=== PATIENT | female | born 1965 | race Caucasian/White ===

== ENCOUNTER 2017-08-06 10:37 | Emergency (ER) | payer OTHER ==
--- NOTE | 2017-08-06 11:30 | RAD ---
TWO VIEWS CHEST: History: Chest pain. Comparison: 01-10-14 FINDINGS: PA and lateral chest demonstrate the lungs to be well aerated. No evidence of active intrathoracic di sease is seen. No evidence of effusions, pneumonia, or pneumothorax is seen. IMPRESSION: Normal two views chest. POS: [facility]
[2017-08-06] MEDS ORDERED: Diazepam 5 MG TAB ONE (11:43)
[2017-08-06] MEDS ORDERED: Promethazine HCl 25 MG/ML VIAL ONE (11:44)
[2017-08-06] MEDS ORDERED: Dexamethasone 10 MG/ML VIAL ONE (11:44)
== END 2017-08-06 13:28 | disposition home or self-care (01) ==
LOC: SCSER 10:37
DX: M94.0 Chondrocostal junction syndrome [Tietze] (principal); F41.9 Anxiety disorder, unspecified; I10 Essential (primary) hypertension; F32.9 Major depressive disorder, single episode, unspecified; F17.210 Nicotine dependence, cigarettes, uncomplicated; Z79.899 Other long term (current) drug therapy
CPT/HCPCS: 71020; 96372; J1100; J1170; J2550

== ENCOUNTER 2025-07-26 19:21 | Inpatient (IN) | payer BC ==
[~2025-07-26 19:21] MED LIST: Iopamidol-370 76% 500 ML MDV (1 ML CHARGE) ONE
[2025-07-26] MEDS ORDERED: Ondansetron PF 4 MG/2 ML Vial ONE (22:29)
[2025-07-27] MEDS ORDERED: Dextrose 50% Abboject 50 ML SYRINGE SLOW IVP PRN (00:12)
[2025-07-27] MEDS ORDERED: Glucagon 1 MG/ML KIT IM PRN (00:12)
[2025-07-27 02:19] VITALS: BMI 39.9
[2025-07-27] MEDS ORDERED: ALPRAZolam 0.25 MG TAB ONE (02:36)
[2025-07-27] MEDS ORDERED: cefTRIAXone (ROCEPHIN) 1 GM VIAL ONE (02:37)
[2025-07-27] MEDS: ALPRAZolam 0.5 MG TAB PO PRN (03:15)
[2025-07-27] MEDS: cefTRIAXone\\ROCEPHIN 1 GM in Sodium Chloride 0.9% 100 ML IVPB SCH (03:15)
[2025-07-27 07:01] LABS: #Basophils 0.05 10x3/uL (0.0-0.2); #Eosinophils 0.20 10x3/uL (0.0-0.7); #Monocytes 0.61 10x3/uL (0.11-0.59); #Neutrophils 3.54 10x3/uL (1.40-6.50); %Basophils 0.7 % (0.0-1.0); %Eosinophils 2.9 % (0.0-10.0); %Lymphocytes 36.4 % (21.0-51.0); %Monocytes 8.8 % (0.0-10.0); %Neutrophils 51.1 % (42.0-75.0); Hematocrit 32.0 % (36.0-47.0); Hemoglobin 9.9 g/dL (12.0-16.0); Mean Corpuscular Hemoglobin 29.6 pg (27.0-31.0); Mean Corpuscular Volume 95.5 fL (78.0-98.0); Platelet Count 259 10x3/uL (130-400); Red Blood Cell (RBC) Count 3.35 mill/uL (4.20-5.40); White Blood Cell (WBC) Count 6.93 10x3/uL (4.8-10.8)
[2025-07-27 07:25] LABS: Anion Gap 7 mmol/L (10-20); BUN (Urea Nitrogen) 14 mg/dL (9.8-20.1); Calc. Creatinine Clearance 75 mL/min (70-130); Calcium 8.8 mg/dL (7.8-10.44); Carbon Dioxide 18 mmol/L (22-29); Chloride 114 mmol/L (98-107); Glucose 144 mg/dL (70-105); Potassium 3.9 mmol/L (3.5-5.1); Sodium 135 mmol/L (136-145)
[2025-07-27] MEDS: cloNIDine 0.1 MG TAB PO SCH (07:37)
[2025-07-27] MEDS: Insulin Glargine 30 UNITS/0.3 ML VIAL SC SCH (08:56)
[2025-07-27] MEDS: Enoxaparin 40 MG (0.4 mL) SYRINGE SC SCH (08:56)
[2025-07-27] MEDS: Aspirin Chewable 81 MG TAB PO SCH (08:57)
[2025-07-27] MEDS: HYDROcodone/Acetaminophen 5/325 mg Tablet PO PRN (09:31)
[2025-07-27] MEDS: Transdermal Patch Removal TOP SCH (20:52)
[2025-07-28 05:36] LABS: #Basophils 0.04 10x3/uL (0.0-0.2); #Eosinophils 0.36 10x3/uL (0.0-0.7); #Monocytes 0.56 10x3/uL (0.11-0.59); #Neutrophils 3.02 10x3/uL (1.40-6.50); %Basophils 0.6 % (0.0-1.0); %Eosinophils 5.6 % (0.0-10.0); %Lymphocytes 38.4 % (21.0-51.0); %Monocytes 8.6 % (0.0-10.0); %Neutrophils 46.6 % (42.0-75.0); Hematocrit 34.5 % (36.0-47.0); Hemoglobin 10.6 g/dL (12.0-16.0); Mean Corpuscular Hemoglobin 29.9 pg (27.0-31.0); Mean Corpuscular Volume 97.2 fL (78.0-98.0); Platelet Count 241 10x3/uL (130-400); Red Blood Cell (RBC) Count 3.55 mill/uL (4.20-5.40); White Blood Cell (WBC) Count 6.48 10x3/uL (4.8-10.8)
[2025-07-28 05:57] LABS: Anion Gap 6 mmol/L (10-20); BUN (Urea Nitrogen) 12 mg/dL (9.8-20.1); Calc. Creatinine Clearance 89 mL/min (70-130); Calcium 9.2 mg/dL (7.8-10.44); Carbon Dioxide 23 mmol/L (22-29); Chloride 113 mmol/L (98-107); Glucose 96 mg/dL (70-105); Potassium 4.3 mmol/L (3.5-5.1); Sodium 138 mmol/L (136-145)
[2025-07-28 07:51] VITALS: TEMP 98
[2025-07-28 12:12] VITALS: BP 112/75
== END 2025-07-28 16:00 | disposition home or self-care (01) | DRG 872 ==
LOC: ERS 19:21 → ERHOLD 23:20 → SURG A 07-27 05:49
PROVIDERS: ADMIT Internal Medicine; ATTEND Internal Medicine
DX: A41.9 Sepsis, unspecified organism (principal); N17.9 Acute kidney failure, unspecified; N39.0 Urinary tract infection, site not specified; Z68.41 Body mass index [BMI] 40.0-44.9, adult; E66.01 Morbid (severe) obesity due to excess calories; N18.9 Chronic kidney disease, unspecified; I12.9 Hypertensive chronic kidney disease with stage 1 through stage 4 chronic kidney disease, or unspecified chronic kidney disease; E11.22 Type 2 diabetes mellitus with diabetic chronic kidney disease; I48.91 Unspecified atrial fibrillation; Z79.899 Other long term (current) drug therapy; Z79.4 Long term (current) use of insulin
CPT/HCPCS: 36415; 36416; 71275; 80048; 85025; 87086; 96374; 96375; J0696; J1650; J1815; J2270; J2405; J7030; Q0162; Q9967